=== PATIENT | male | born 1975 | race Caucasian/White ===

== ENCOUNTER 2023-06-05 04:24 | Emergency (ER) | payer OTHER, SELFPAY ==
[2023-06-05 04:27] VITALS: BP 138/87; PULSE 76; RESP 14; TEMP 36.7; O2SAT 100
--- NOTE | 2023-06-05 05:17 | ED.GENADULT ---
HPI - General Adult General Chief complaint: Eye Problems Stated complaint: right eye pain Time Seen by Provider: 06/05/23 05:01 History of Present Illness HPI narrative: patient is a 47-year-old gentleman who presents emergency department with chief complaint of right eye pain. Patient reports that he felt something was in his eye tried to rinse his eye and rubbed his eye and has been noticing pain that has been worsening in the right eye ptosis or blurriness of the right eye. Related Data Home Medications Medication Instructions Recorded Confirmed aspirin 81 mg tablet,delayed 81 mg PO DAILY 03/24/19 release (Adult Low Dose Aspirin) cetirizine 10 mg tablet (Zyrtec) 10 mg PO DAILY PRN 03/24/19 omega-3 fatty acids 1,000 mg 1,000 mg PO DAILY 03/24/19 capsule (Fish Oil Concentrate) zinc 50 mg tablet 50 mg PO DAILY 03/24/19 Allergies Allergy/AdvReac Type Severity Reaction Status Date / Time NKDA Allergy Mild Uncoded 07/14/09 18:24 Review of Systems Review of Systems: A 10 system review of systems was completed on the patient and is negative except for what is stated in the HPI. Nursing and ancillary documentation was reviewed. PMFSH Past Medical History Medical History Celiac disease Hypothyroidism Surgical History Surgical History H/O hernia repair H/O vasectomy [place] teeth removed Family History Family History Father Patient's father is in good health Mother History of bladder problems Bladder cancer Social History Social History Smoking status: Never smoker Alcohol intake: current Exam Narrative: GENERAL: Well-appearing, well-nourished, and in no acute distress. HEAD: Normocephalic, atraumatic. EYES: PERRLA and EOMI. ENT: Nares clear, no rhinorrhea or epistaxis. Mucous membranes moist. There is a corneal abrasion present at the 6 o'clock position NECK: Supple. CHEST: Clear to auscultation. No respiratory distress. HEART: Regular rate and rhythm. No murmur heard. Normal peripheral pulses. ABDOMEN: Soft, nontender, nondistended, normal active bowel sounds. EXTREMITIES: Normal range of motion. No edema. SKIN: Warm, dry, no rash. NEURO: No focal deficits. Alert and oriented x3. PSYCH: Normal mood and affect. Course Vital Signs Vital signs: Vital Signs Temperature 36.7 C 06/05/23 04:27 Pulse Rate 76 06/05/23 04:27 Respiratory Rate 14 06/05/23 04:27 Blood Pressure 138/87 06/05/23 04:27 Pulse Oximetry 100 06/05/23 04:27 Oxygen Delivery Room Air 06/05/23 04:27 Temperature 36.7 C 06/05/23 04:27 Pulse Rate 76 06/05/23 04:27 Respiratory Rate 14 06/05/23 04:27 Blood Pressure 138/87 06/05/23 04:27 Pulse Oximetry 100 06/05/23 04:27 Oxygen Delivery Room Air 06/05/23 04:27 Medical Decision Making Vital Signs Vital Signs: Vital Signs Temperature 36.7 C 06/05/23 04:27 Pulse Rate 76 06/05/23 04:27 Respiratory Rate 14 06/05/23 04:27 Blood Pressure 138/87 06/05/23 04:27 Pulse Oximetry 100 06/05/23 04:27 Oxygen Delivery Room Air 06/05/23 04:27 Temperature 36.7 C 06/05/23 04:27 Pulse Rate 76 06/05/23 04:27 Respiratory Rate 14 06/05/23 04:27 Blood Pressure 138/87 06/05/23 04:27 Pulse Oximetry 100 06/05/23 04:27 Oxygen Delivery Room Air 06/05/23 04:27 Discharge Plan Discharge Clinical Impression: Corneal abrasion Patient Disposition: Home, Self-Care Condition: Stable Instructions: Antibiotic Form, Corneal Abrasion (ED) Prescriptions: New moxifloxacin [Vigamox] 0.5 % drops 1 drp EACH EYE TID 7 Days Qty: 3 0RF hydrocodone-acetaminophen 5-325 mg tablet 1 tablet PO Q6H PRN (Reason: pain) 3 Days Qt
[2023-06-05 05:32] VITALS: BP 136/74; PULSE 82; RESP 15; O2SAT 98
== END 2023-06-05 05:33 | disposition home or self-care (01) ==
PROVIDERS: Emergency Provider Emergency Medicine
DX: S05.00XA Injury of conjunctiva and corneal abrasion without foreign body, unspecified eye, initial encounter (principal); K90.0 Celiac disease; E03.9 Hypothyroidism, unspecified; Z79.82 Long term (current) use of aspirin; X58.XXXA Exposure to other specified factors, initial encounter
CPT/HCPCS: 99283; A9270

== ENCOUNTER 2024-02-08 14:39 | Emergency (ER) | payer OTHER, SELFPAY ==
[2024-02-08 14:53] VITALS: BP 133/74; PULSE 69; RESP 16; TEMP 36.3; O2SAT 100
--- NOTE | 2024-02-08 15:32 | ED.GENADULT ---
HPI - General Adult General Chief complaint: Skin/Abscess/Foreign Body Stated complaint: Insect bite Time Seen by Provider: 02/08/24 15:32 Source: patient, RN notes reviewed and old records reviewed Mode of arrival: ambulatory Limitations: no limitations History of Present Illness HPI narrative: 48-year-old male presents to the [facility] with complaints of a wasp sting that occurred 2 days ago pain and swelling to the left hand stung 5th proximal kessler aspect 2 days ago Related Data Home Medications Medication Instructions Recorded Confirmed aspirin 81 mg tablet,delayed 81 mg PO DAILY 03/24/19 02/08/24 release (Adult Low Dose Aspirin) cetirizine 10 mg tablet (Zyrtec) 10 mg PO DAILY PRN Allergy Symptoms 03/24/19 02/08/24 omega-3 fatty acids 1,000 mg 1,000 mg PO DAILY 03/24/19 02/08/24 capsule (Fish Oil Concentrate) zinc 50 mg tablet 50 mg PO DAILY 03/24/19 02/08/24 Allergies Allergy/AdvReac Type Severity Reaction Status Date / Time No Known Allergies Allergy Verified 02/08/24 15:40 Review of Systems Review of Systems: All systems reviewed & are unremarkable except as noted in HPI and below Constitutional: Constitutional: Reports no additional constitutional complaints Eyes: Eyes: Reports no additional eye complaints ENT: Reports system reviewed and no additional complaints, except as documented Cardiovascular: Cardiovascular: Reports no additional cardiovascular complaints, Denies chest pain and Denies dyspnea Respiratory: Respiratory: Reports no additional respiratory complaints, Denies chest congestion, Denies cough and Denies dyspnea Gastrointestinal: Gastrointestinal: Reports no additional gastrointestinal complaints, Denies abdominal pain, Denies nausea and Denies vomiting Musculoskeletal: Musculoskeletal: Reports as per HPI Integumentary/Breasts: Skin/Breast: Reports as per HPI Neurologic: Reports system reviewed and no additional complaints, except as documented Psychiatric: Psychiatric: Reports no additional psychiatric complaints Allergic/Immunologic: Allergic/Immunologic: Reports no additional allergic/immunologic complaints PMF Past Medical History Medical History Celiac disease Hypothyroidism Surgical History Surgical History H/O hernia repair H/O vasectomy [place] teeth removed Family History Family History Father Patient's father is in good health Mother History of bladder problems Bladder cancer Social History Social History Smoking status: Never smoker Alcohol intake: current Comments At the time of my signature, I reviewed and agree with the nursing past medical, surgical, social, and family history. There is no relevant family history pertinent to the patient complaint. Exam Const: General: cooperative, healthy appearing, comfortable, no acute distress, well developed, alert and well nourished Nutritional Appearance: well nourished Orientation/consciousness: patient oriented x3 Limitations: no limitations HENMT: Head: normal to inspection Ears: hearing grossly normal bilaterally and external ears normal Face/Nose/Sinus: Normal external nose present, Normal nares present, Normal nasal mucous membranes and turbinates present, normal facial exam and face symmetric Face and sinus: normal facial exam and face symmetric Mouth: Yes Normal oral and palatal mucosa present, Yes lip normal and Yes tongue normal Throat: posterior oropharynx normal, uvula midline and no uvular edema Eyes: General: appearance normal, both eyes and all related structures Alignment and Position: alignment normal Periorbital: periorbital findings normal Neck: Neck: normal visual inspection, full ROM, no lymphadenopathy and no meningeal signs Chest: Chest palpation &
== END 2024-02-08 15:48 | disposition home or self-care (01) ==
PROVIDERS: Emergency Provider Nurse Practitioner; PCP Nurse Practitioner
DX: T63.461A Toxic effect of venom of wasps, accidental (unintentional), initial encounter (principal); K90.0 Celiac disease; E03.9 Hypothyroidism, unspecified; Z98.52 Vasectomy status; Z79.82 Long term (current) use of aspirin
CPT/HCPCS: 99211; G0463

== ENCOUNTER 2025-02-16 01:59 | Emergency (ER) | payer OTHER, SELFPAY ==
[2025-02-16] VITALS (12 sets, daily range): BP systolic 112–134; BP diastolic 64–86; PULSE 77–87; RESP 14–18; TEMP 36.4–37; O2SAT 94–100
--- NOTE | ~2025-02-16 | XR_ITS ---
EXAMINATION: XR chest 1V, 02/16/2025 7:56 CDT HISTORY: syncope COMPARISON: No comparisons available. Technique: Single view. Findings: The lungs are clear, no effusion. No pneumothorax. Heart is normal size. Mediastinal and hilar contours are within normal limits. Bony thorax no acute abnormality. Impression: No acute cardiopulmonary abnormality. Reviewed, dictated and finalized at location P. Impression: No acute cardiopulmonary abnormality.
--- NOTE | ~2025-02-16 | CT_ITS ---
EXAMINATION: CT brain wo con DATE: 02/16/2025 07:57 INDICATION: Head injury. TECHNIQUE: Computed tomography (CT) of the head was performed without intravenous contrast. The mA was adjusted according to patient size. Iterative reconstruction technique was employed. The dose-length product was 605.33 mGy-cm. COMPARISON: None FINDINGS: There is no intracranial hemorrhage, acute infarction, or abnormal intracranial mass lesion. The ventricles are normal in size. The orbits are normal. There is mild mucosal thickening in the paranasal sinuses. The mastoid air cells are normal. There is a laceration of the right ear. IMPRESSION: 1. Normal brain. Reviewed, dictated and finalized at location E. IMPRESSION: 1. Normal brain.
[2025-02-16] MEDS: HYDROcodone/acetaminophen (*CRX) 5-325 MG TABLET 1 TAB PO (02:27)
--- NOTE | 2025-02-16 07:46 | ECG_ITS ---
Test Date: 2025-02-16 08:36:17 Measurements Intervals [place] Rate: 70 P: 62 DE: 153 QRS: 67 QRSD: 84 T: 57 QT: 409 QTc: 444 Interpretive Statements SINUS RHYTHM INCOMPLETE RIGHT BUNDLE BRANCH BLOCK BORDERLINE ECG No previous ECG available for comparison Electronically Signed On 02-16-2025 10:10:52 CDT by Robert Ward D.O.
--- NOTE | 2025-02-16 07:50 | ED_ITS ---
HPI - General Adult General Chief complaint: Head Injury Stated complaint: head injury Time Seen by Provider: 02/16/25 07:03 History of Present Illness HPI narrative: 49-year-old male presents to the emergency department for evaluation for injury to his right ear. Patient states he was walking from his bed at night had a issue with dizziness and fell struck his head on the edge of the bed causing a laceration to his ear. Patient did not have any loss of consciousness. Patient denies any prior syncopal episodes. Patient denies any prior cardiac history. Patient is not on any blood thinners. Patient does admit to having some alcohol with dinner but does not suspect he had excessive alcohol. Related Data Home Medications ?Medication ?Instructions ?Recorded ?Confirmed ?Last Taken ?Type aspirin 81 mg tablet,delayed 81 mg PO DAILY 03/24/19 0 02/08/24 Unknown History release (Adult Low Dose Aspirin) cetirizine 10 mg tablet (Zyrtec) 10 mg PO DAILY PRN Al lergy Symptoms 03/24/19 02/08/24 Unknown History omega-3 fatty acids 1,000 mg 1,000 mg PO DAILY 9 02/08/24 Unknown History capsule (Fish Oil Concentrate) zinc 50 mg tablet 50 mg PO DAILY 03/24/1901/11 Unknown History Allergies Allergy/AdvReac Type Severity Reaction Status Date / Time No Known Allergies Allergy Verified 02/08/24 15:40 Review of Systems 2 Review of Systems: All systems reviewed & are unremarkable except as noted in HPI and below PMFSH Past Medical History Medical History Celiac disease Hypothyroidism Surgical History Surgical History H/O hernia repair H/O vasectomy [place] teeth removed Family History Family History Father Patient's father is in good health Mother History of bladder problems Bladder cancer Social History Social History Smoking status: Never smoker Alcohol intake: current Exam 2 Narrative: APPEARANCE: Well appearing, no pain, no distress, well-nourished. HEAD: normocephalic, atraumatic. EYES: PERRLA/EOMI, conjunctivae clear. NOSE: Normal no drainage EARS: Complex ear laceration to the right ear through the helix and antihelix involving the cartilage. THROAT: Pharynx clear, no exudate. NECK: Supple. No adenopathy, no masses. RESPIRATORY: Airway patent, respirations nonlabored. Clear to auscultation bilaterally, no rales, rhonchi, wheezing. CARDIOVASCULAR: Regular rate and rhythm without murmurs rubs or gallops. ABDOMINAL: Soft, nontender, nondistended, normal bowel sounds MUSCULOSKELETAL: Moves all extremities. Strength/ROM intact, No edema, No calf tenderness. NEURO: Alert. Cranial nerves II through XII intact. Good gait. Good coordination SKIN: Warm, dry. Normal Color Course Vital Signs Vital signs: Vital Signs Temperature 97.6 F 02/16/25 02:07 Pulse Rate 87 02/16/25 02:07 Respiratory Rate 18 02/16/25 02:07 Blood Pressure 112/75 02/16/25 02:07 Pulse Oximetry 99 02/16/25 02:07 Temperature 98.6 F 02/16/25 02:36 Pulse Rate 77 02/16/25 02:36 Respiratory Rate 14 02/16/25 02:36 Blood Pressure 127/75 02/16/25 09:01 Pulse Oximetry 98 02/16/25 08:31 Medical Decision Making [facility] Narrative Medical decision making narrative: 49-year-old male presents emergency department for evaluation after having a near syncopal episode causing him to fall and strike his head. Patient denies any loss of consciousness. Patient does have a mild headache. Patient is currently afebrile no leukocytosis hemoglobin of 13.8. INR of 1.0. Patient is not on any blood thinners. No significant abnormalities on his CMP TSH is normal Mag is also normal. Chest x-ray shows no acute cardiopulmonary mallet he head CT was negative for acute intracranial abnormality. EKG shows normal sinus rhythm. Patient reports a family history of QT prolongation. I attempted to have our plastic surgeon evaluate the patient but he was not available. I do feel that this is an extensive laceration going through the majority the right ear involving the cartilage. This will be an extensive repair and would be better performed by ENT or Plastic surgery. No other those services are available today [place]. Patient does prefer to be transferred to [facility] [address]. I discussed the case with the ED at [facility] and patient was accepted as a level 3 trauma. Patient was treated with a dose IV Rocephin in the emergency department. Differential Diagnosis Differential Diagnosis: Subdural hematoma, subarachnoid hemorrhage, cardiac syncope, near syncope, ear laceration Vital Signs Vital Signs: Vital Signs Temperature 97.6 F 02/16/25 02:07 Pulse Rate 87 02/16/25 02:07 Respiratory Rate 18 02/16/25 02:07 Blood Pressure 112/75 02/16/25 02:07 Pulse Oximetry 99 02/16/25 02:07 Temperature 98.6 F 02/16/25 02:36 Pulse Rate 77 02/16/25 02:36 Respiratory Rate 14 02/16/25 02:36 Blood Pressure 127/75 02/16/25 09:01 Pulse Oximetry 98 02/16/25 08:31 Lab Data Lab results reviewed: Yes I reviewed the patient's lab results. 02/16/25 08:16 02/16/25 08:16 Labs: Lab Results 02/16/25 Range/Units 08:16 WBC 4.8 (4.5-10.0) K/mm3 RBC 4.37 L (4.6-6.20) M/mm3 Hgb 13.8 L (14.0-18.0) g/dL Hct 40.2 L (42.0-52.0) % MCV 92.0 (80-100) fl MCH 31.6 (26-34) pg MCHC 34.3 (32-36) g/dl RDW 12.1 (11.5-14.5) % Plt Count 185 (150-375) k/mm3 MPV 10.6 H (7.4-10.4) fl Immature Gran % (Auto) 0.2 (0-0.5) % Neut % (Auto) 68.4 (45.5-73.1) % Lymph % (Auto) 21.9 (18.3-44.2) % [place] % (Auto) 8.1 (2.6-8.5) % Eos % (Auto) 1.2 (0-4.4) % Baso % (Auto) 0.2 (0.2-1.2) % Lymph # (Auto) 1.06 (0.9-3.2) K/mm3 [place] # (Auto) 0.4 (0.1-0.6) K/mm3 Eos # (Auto) 0.1 (0-0.3) K/mm3 Baso # (Auto) 0.0 (0.0-0.1) K/mm3 Abs Immat Gran (auto) 0.01 (0.00-0.031) K/mm3 Absolute Neuts (auto) 3.3 (1.3-6.7) K/mm3 Absolute Nucleated RBC 0.000 (0.0-0.012) K/mm3 Nucleated RBC % 0.0 (0.0-0.2) % PT 13.2 (11.1-14.7) Seconds INR 1.0 APTT 24.8 (22.3-36.8) Seconds Sodium 136 L (137-145) mmol/L Potassium 4.0 (3.4-5.0) mmol/L Chloride 102 (98-107) mmol/L Carbon Dioxide 27 (22-30) mmol/L Anion Gap 7 (4-12) mmol/L BUN 21 H (9-20) mg/dL Creatinine 0.96 (0.7-1.3) mg/dL Estim Creat Clear Calc 93 ml/min Estimated GFR > 60 (59 - ) Glucose 104 (65-110) mg/dL Calcium 9.0 (8.4-10.2) mg/dL Magnesium 2.2 (1.6-2.3) mg/dL Total Bilirubin 0.6 (0.2-1.3) mg/dL AST 26 (17-59) U/L ALT 17 (6-50) U/L Alkaline Phosphatase 62 (38-126) U/L Total Protein 7.4 (6.3-8.2) g/dL Albumin 4.4 (3.5-5.1) g/dL TSH (Reflex) 2.950 (0.465-4.68) uIU/mL Imaging Data Radiologist's impression: Impressions Head CT 02/16/25 07:59 IMPRESSION: 1. Normal brain. Chest X-Ray 02/16/25 08:16 Impression: No acute cardiopulmonary abnormality. ECG Data EKG #1: EKG Interpretation: normal rate, sinus rhythm, non-specific ST changes, RBBB, NL axis and no acute changes Discharge Plan Discharge Clinical Impression: Closed head injury, Complex laceration of right ear Patient Disposition: Acute Care Hospital Condition: Stable Patient Language: Japanese Prescriptions: No Action aspirin [Adult Low Dose Aspirin] 81 mg tablet,delayed release (DR/EC) 81 mg PO DAILY omega-3 fatty acids [Fish Oil Concentrate] 1,000 mg capsule 1,000 mg PO DAILY zinc 50 mg tablet 50 mg PO DAILY cetirizine [Zyrtec] 10 mg tablet 10 mg PO DAILY PRN (Reason: Allergy Symptoms) levothyroxine 50 mcg tablet 50 mcg PO DAILY Qty: 30 0RF Rx Instructions: LAST REFILL UNTIL SEEN Follow-up/Referrals: Soheila,ANAT Martino [Primary Care Provider, Unknown]
--- NOTE | 2025-02-16 08:19 | PC.NURSE ---
Patient stated that his pain is less then one at this time; only when affected area is touched does his pain go up. will hold IV pain medication until needed.
[2025-02-16 08:26] LABS: Hematocrit 40.2 % (42.0-52.0); Hemoglobin 13.8 g/dL (14.0-18.0); Immature Granulocyte Percent A 0.2 % (0-0.5); Lymphocytes Absolute Auto 1.06 K/mm3 (0.9-3.2); Mean Corpuscular HGB Conc 34.3 g/dl (32-36); Mean Corpuscular Hemoglobin 31.6 pg (26-34); Mean Corpuscular Volume 92.0 fl (80-100); Nucleated Red Blood Cells Absolute Auto 0.000 K/mm3 (0.0-0.012); Nucleated Red Blood Cells Perc 0.0 % (0.0-0.2); Platelet Count Result 185 k/mm3 (150-375); Red Blood Count 4.37 M/mm3 (4.6-6.20); White Blood Count 4.8 K/mm3 (4.5-10.0)
[2025-02-16] MEDS: LACTATED RINGERS 1,000 ML 999 ML IV CONT (08:26)
[2025-02-16 08:37] LABS: INR 1.0; Prothrombin Time 13.2 Seconds (11.1-14.7)
[2025-02-16 08:38] LABS: Partial Thromboplastin Time 24.8 Seconds (22.3-36.8)
[2025-02-16 08:44] LABS: Alanine Aminotransferase 17 U/L (6-50); Albumin Level 4.4 g/dL (3.5-5.1); Alkaline Phosphatase 62 U/L (38-126); Anion Gap 7 mmol/L (4-12); Aspartate Amino Transferase 26 U/L (17-59); Bilirubin,Total 0.6 mg/dL (0.2-1.3); Blood Urea Nitrogen 21 mg/dL (9-20); Calcium 9.0 mg/dL (8.4-10.2); Carbon Dioxide 27 mmol/L (22-30); Chloride 102 mmol/L (98-107); Estimated CRCL calculation 93 ml/min; Estimated Glomerular Filt Rate > 60; Glucose 104 mg/dL (65-110); Magnesium 2.2 mg/dL (1.6-2.3); Potassium 4.0 mmol/L (3.4-5.0); Sodium 136 mmol/L (137-145); Total Protein 7.4 g/dL (6.3-8.2)
[2025-02-16 09:16] LABS: Thyroid Stimulating Hormone Reflex 2.950 uIU/mL (0.465-4.68)
[2025-02-16] MEDS: HYDROmorphone HCL INJ (*CRX) 1 MG/ML SYR 0.5 MG IV PUSH (09:32)
[2025-02-16] MEDS: cefTRIAXone 1 GM in SODIUM CHLORIDE 0.9% IV 50 ML 100 ML IVPB (09:41)
== END 2025-02-16 10:45 | disposition short-term general hospital (02) ==
PROVIDERS: Emergency Provider Emergency Medicine; PCP Nurse Practitioner
DX: S01.311A Laceration without foreign body of right ear, initial encounter (principal); K90.0 Celiac disease; E03.9 Hypothyroidism, unspecified; I45.10 Unspecified right bundle-branch block; W01.190A Fall on same level from slipping, tripping and stumbling with subsequent striking against furniture, initial encounter
CPT/HCPCS: 36415; 70450; 71045; 80053; 83735; 84443; 85025; 85610; 85730; 93005; 96361; 96365; 96375; 99284; A9270; J0696; J1171; J7120